=== PATIENT | female | born 1950 | race Caucasian/White ===

== ENCOUNTER 2020-09-22 09:14 | Inpatient (IN) | payer MEDICARE, MEDICAID ==
[~2020-09-22] VITALS: Ht 160 cm; Wt 94.3 kg
[~2020-09-22 09:14] MED LIST: ABIL5; FLUO20CA33; HYDR-3735; IBUP-2030; LORA-250
[2020-09-22 10:05] LABS: BASOPHILS % 0.8 % (0.0-2.0); EOSINOPHILS % 4.7 % (0.0-5.0); HEMATOCRIT. 39.5 % (36.0-48.0); LYMPHOCYTES % 24.2 % (20.0-50.0); MEAN CORPUSCULAR HEMOGLOBIN 31.6 pg (28.0-32.0); MEAN CORPUSCULAR VOLUME 89.2 fL (81.0-99.0); MEAN PLATELET VOLUME 7.4 fl (7.4-10.4); MONOCYTES % 6.1 % (2.0-8.0); NEUTROPHILS % 64.2 % (40.0-76.0); PLATELET 305 x1000/uL (130-400); RED BLOOD CELL COUNT 4.42 mill/uL (4.2-5.4); RED CELL DISTRIBUTION WIDTH 13.6 % (11.6-14.6)
[2020-09-22 10:12] LABS: CHLORIDE 105 mEq/L (98-107)
[2020-09-22] MEDS ORDERED: METHYLPREDNISOLONE SOD SUCC 125 MG/2 ML VIAL IV STA (10:27)
[2020-09-22] MEDS ORDERED: LEVOFLOXACIN 750MG PREMIX 150 ML IV STA (10:27)
[2020-09-22] MEDS ORDERED: IPRATROPIUM BROMIDE (0.02%) 0.5MG/2.5ML NEB HHN STA (10:27)
[2020-09-22] MEDS ORDERED: ALBUTEROL (0.083%) 2.5MG/3ML NEB HHN STA (10:27)
[2020-09-22] MEDS ORDERED: HYDRALAZINE 20MG/ML VIAL IV ONE (10:30)
[2020-09-22] MEDS ORDERED: ASPIRIN 81MG TABLET PO ONE (10:30)
[2020-09-22 13:40] VITALS: BP 112/43
[2020-09-22 14:00] VITALS: BP 112/43
[2020-09-22] MEDS ORDERED: LORAZEPAM 0.5MG TABLET PO PRN (14:30)
[2020-09-22] MEDS ORDERED: DIPHENHYDRAMINE 50MG/ML VIAL IV PRN (14:30)
[2020-09-22] MEDS ORDERED: ACETAMINOPHEN 650MG SUPP PR PRN (14:30)
[2020-09-22] MEDS ORDERED: IPRATROPIUM/ALBUTEROL 0.5-3(2.5)MG/3ML NEB NEB PRN (14:30)
[2020-09-22] MEDS ORDERED: CLONIDINE 0.1MG TABLET PO PRN (14:30)
[2020-09-22] MEDS ORDERED: GUAIFENESIN 200MG/10ML SUGAR FREE UDC PO PRN (14:30)
[2020-09-22] MEDS ORDERED: HYDROCODONE/ACETAMINOPHEN 5/325MG TABLET PO PRN (14:30)
[2020-09-22] MEDS ORDERED: MAGNESIUM/ALUMINUM HYDROXIDE/SIMETHICONE 30ML UDC PO PRN (14:30)
[2020-09-22] MEDS ORDERED: NA PHOS,M-B/NA PHOS,DI-BA ENEMA 118ML PR PRN (14:30)
[2020-09-22] MEDS ORDERED: ACETAMINOPHEN 325MG TABLET PO PRN (14:30)
[2020-09-22] MEDS ORDERED: ONDANSETRON HCL 4MG/2ML INJ IV PRN (14:30)
[2020-09-22] MEDS ORDERED: DOCUSATE SODIUM 100MG CAPSULE PO PRN (14:30)
[2020-09-22] MEDS ORDERED: GABA-532 PO (15:20)
[2020-09-22] MEDS ORDERED: BUSP10TA4 PO (15:20)
[2020-09-22] MEDS ORDERED: CLAR10 MT (15:20)
[2020-09-22 16:00] VITALS: BP 120/43
[2020-09-22 16:12] LABS: BG BASE EXCESS 0.7 mmol/L (-2.0-2.0); BG FRACTION INSPIRED OXYGEN 21; BG HCO3 ACT 25.5 mmol/L (22.0-26.0); BG METHEMOGLOBIN 0.3 % (0.0-1.5); BG OXYHEMOGLOBIN 93.7 % (94.0-97.0); BG PCO2 41.3 mmHg (35.0-45.0); BG PH 7.408 (7.350-7.450); BG SAMPLE SITE RIGHT RADIAL; BG TOTAL HEMOGLOBIN 14.3 g/dL (12.0-18.0); BG VENT MODE ROOM AIR
[2020-09-22] MEDS ORDERED: *PATIENT'S OWN MEDICATION STORAGE XX SCH (16:15)
[2020-09-22 16:41] LABS: D-DIMER 0.44 mg/L FEU (<0.50); INR 1.1; PROTHROMBIN TIME 11.4 sec (9.6-11.0)
[2020-09-22] MEDS: SODIUM CHLORIDE 0.45% 1,000 ML IV SCH (17:25)
[2020-09-22] MEDS: LEVOFLOXACIN 500MG PREMIX 100 ML IV SCH (17:25)
[2020-09-22] MEDS ORDERED: ENOXAPARIN 30MG/0.3ML SYR SUBCUT SCH (18:00)
[2020-09-22 20:00] VITALS: BP 118/51
[2020-09-22] MEDS: IPRATROPIUM/ALBUTEROL 0.5-3(2.5)MG/3ML NEB NEB SCH (20:53)
[2020-09-22] MEDS: GABAPENTIN 300MG CAPSULE PO SCH (20:56)
[2020-09-22] MEDS: FAMOTIDINE 20MG TABLET PO SCH (20:56)
[2020-09-22] MEDS: BUSPIRONE HCL 10MG TABLET PO SCH (22:55)
[2020-09-22] MEDS ORDERED: IOHEXOL-350 100 ML BOTTLE ONE (23:14)
[2020-09-23] VITALS: BP 121/74
[2020-09-23 00:50] LABS: CREATINE KINASE MB FRACTION 8.6 ng/mL (0.5-3.6)
[2020-09-23] MEDS: ASPIRIN 81MG TABLET PO SCH ×2 (01:26→09:52)
[2020-09-23] MEDS: METOPROLOL TARTRATE 25MG TABLET PO SCH ×3 (01:27→21:00)
[2020-09-23] MEDS: IPRATROPIUM/ALBUTEROL 0.5-3(2.5)MG/3ML NEB NEB SCH ×4 (02:16→20:30)
[2020-09-23 04:00] VITALS: BP 115/52
[2020-09-23] MEDS: GABAPENTIN 300MG CAPSULE PO SCH ×3 (05:48→22:00)
[2020-09-23 06:19] LABS: CHLORIDE 102 mEq/L (98-107)
[2020-09-23 06:30] LABS: T4 FREE 1.16 ng/dL (0.76-1.46)
[2020-09-23 06:31] LABS: LDL CHOLESTEROL 94 mg/dL (5-100)
[2020-09-23 06:32] LABS: CREATINE KINASE 197 IU/L (26-192); CREATINE KINASE MB FRACTION 8.1 ng/mL (0.5-3.6); HDL CHOLESTEROL 74 mg/dL (40-59)
[2020-09-23 07:52] VITALS: BP 124/71
[2020-09-23] MEDS ORDERED: ENOXAPARIN 40MG/0.4ML SYR SUBCUT SCH (09:00)
[2020-09-23] MEDS: BUSPIRONE HCL 10MG TABLET PO SCH ×2 (09:52→21:00)
[2020-09-23] MEDS: LORATADINE 10MG TABLET PO SCH (09:52)
[2020-09-23] MEDS: METHYLPREDNISOLONE SOD SUCC 40 MG/ML VIAL IV SCH (09:52)
[2020-09-23] MEDS: ENOXAPARIN 30MG/0.3ML SYR SUBCUT SCH ×2 (09:52→21:00)
[2020-09-23] MEDS: ARIPIPRAZOLE 5MG TABLET PO SCH (09:53)
[2020-09-23 12:00] VITALS: BP 129/57
[2020-09-23 14:17] LABS: BASOPHILS % 0.4 % (0.0-2.0); EOSINOPHILS % 0.1 % (0.0-5.0); HEMATOCRIT. 38.7 % (36.0-48.0); HEMOGLOBIN. 13.2 g/dL (12.0-16.0); MEAN CORPUSCULAR HEMOGLOBIN 30.9 pg (28.0-32.0); MEAN CORPUSCULAR VOLUME 90.2 fL (81.0-99.0); MEAN PLATELET VOLUME 8.2 fl (7.4-10.4); MONOCYTES % 4.4 % (2.0-8.0); NEUTROPHILS % 86.1 % (40.0-76.0); PLATELET 345 x1000/uL (130-400); RED BLOOD CELL COUNT 4.29 mill/uL (4.2-5.4)
[2020-09-23] MEDS: SODIUM CHLORIDE 0.45% 1,000 ML IV SCH (14:18)
[2020-09-23 16:00] VITALS: BP 123/64
[2020-09-23] MEDS: LEVOFLOXACIN 500MG PREMIX 100 ML IV SCH (17:22)
[2020-09-23 20:00] VITALS: BP 132/65
[2020-09-23] MEDS: FAMOTIDINE 20MG TABLET PO SCH (21:00)
[2020-09-23] MEDS: ATORVASTATIN CALCIUM 40MG TABLET PO SCH (21:00)
[2020-09-24] VITALS: BP 109/59
[2020-09-24] MEDS: IPRATROPIUM/ALBUTEROL 0.5-3(2.5)MG/3ML NEB NEB SCH ×4 (00:51→21:27)
[2020-09-24] MEDS: GABAPENTIN 300MG CAPSULE PO SCH ×3 (06:35→22:04)
[2020-09-24 06:43] LABS: BASOPHILS % 0.3 % (0.0-2.0); EOSINOPHILS % 0.1 % (0.0-5.0); HEMATOCRIT. 38.2 % (36.0-48.0); HEMOGLOBIN. 12.7 g/dL (12.0-16.0); MEAN CORPUSCULAR HEMOGLOBIN 30.3 pg (28.0-32.0); MEAN CORPUSCULAR VOLUME 91.3 fL (81.0-99.0); MEAN PLATELET VOLUME 8.1 fl (7.4-10.4); MONOCYTES % 5.2 % (2.0-8.0); NEUTROPHILS % 68.4 % (40.0-76.0); PLATELET 323 x1000/uL (130-400); RED BLOOD CELL COUNT 4.19 mill/uL (4.2-5.4); RED CELL DISTRIBUTION WIDTH 14.2 % (11.6-14.6)
[2020-09-24 07:01] LABS: CHLORIDE 106 mEq/L (98-107)
[2020-09-24 08:00] VITALS: BP 112/61
[2020-09-24] MEDS: SODIUM CHLORIDE 0.45% 1,000 ML IV SCH (08:00)
[2020-09-24] MEDS: ARIPIPRAZOLE 5MG TABLET PO SCH (09:43)
[2020-09-24] MEDS: METOPROLOL TARTRATE 25MG TABLET PO SCH ×2 (09:43→22:04)
[2020-09-24] MEDS: BUSPIRONE HCL 10MG TABLET PO SCH ×2 (09:44→22:04)
[2020-09-24] MEDS: METHYLPREDNISOLONE SOD SUCC 40 MG/ML VIAL IV SCH (09:45)
[2020-09-24] MEDS: LORATADINE 10MG TABLET PO SCH (09:45)
[2020-09-24] MEDS: ENOXAPARIN 30MG/0.3ML SYR SUBCUT SCH ×2 (09:46→22:03)
[2020-09-24] MEDS: ASPIRIN 81MG TABLET PO SCH (09:46)
[2020-09-24] MEDS ORDERED: REGADENOSON 0.4 MG/5 ML IV NR (10:45)
[2020-09-24 12:00] VITALS: BP 129/76
[2020-09-24] MEDS: DEXT 5%/0.45% NACL 1000ML 1,000 ML IV SCH (15:30)
[2020-09-24 16:00] VITALS: BP 115/49
[2020-09-24] MEDS: LEVOFLOXACIN 500MG PREMIX 100 ML IV SCH (18:16)
[2020-09-24 20:00] VITALS: BP 116/58
[2020-09-24] MEDS: ATORVASTATIN CALCIUM 40MG TABLET PO SCH (22:04)
[2020-09-24] MEDS: FAMOTIDINE 20MG TABLET PO SCH (22:04)
[2020-09-25] VITALS: BP 121/62
[2020-09-25] MEDS: IPRATROPIUM/ALBUTEROL 0.5-3(2.5)MG/3ML NEB NEB SCH ×2 (02:40→13:06)
[2020-09-25 04:00] VITALS: BP 122/57
[2020-09-25] MEDS: GABAPENTIN 300MG CAPSULE PO SCH (06:17)
[2020-09-25 07:17] LABS: BASOPHILS % 0.7 % (0.0-2.0); EOSINOPHILS % 3.4 % (0.0-5.0); HEMATOCRIT. 38.1 % (36.0-48.0); HEMOGLOBIN. 12.7 g/dL (12.0-16.0); LYMPHOCYTES % 39.3 % (20.0-50.0); MEAN CORPUSCULAR HEMOGLOBIN 30.5 pg (28.0-32.0); MEAN CORPUSCULAR VOLUME 91.2 fL (81.0-99.0); MEAN PLATELET VOLUME 7.9 fl (7.4-10.4); MONOCYTES % 7.8 % (2.0-8.0); NEUTROPHILS % 48.8 % (40.0-76.0); PLATELET 304 x1000/uL (130-400); RED BLOOD CELL COUNT 4.18 mill/uL (4.2-5.4); RED CELL DISTRIBUTION WIDTH 14.3 % (11.6-14.6)
[2020-09-25 07:50] LABS: CHLORIDE 106 mEq/L (98-107)
[2020-09-25 08:00] VITALS: BP 124/68
[2020-09-25] MEDS: DEXT 5%/0.45% NACL 1000ML 1,000 ML IV SCH (08:10)
[2020-09-25] MEDS ORDERED: REGADENOSON 0.4 MG/5 ML IV ONE (08:46)
[2020-09-25] MEDS: ENOXAPARIN 30MG/0.3ML SYR SUBCUT SCH (09:00)
[2020-09-25] MEDS: LORATADINE 10MG TABLET PO SCH (09:00)
[2020-09-25] MEDS: BUSPIRONE HCL 10MG TABLET PO SCH (09:00)
[2020-09-25] MEDS: METOPROLOL TARTRATE 25MG TABLET PO SCH (09:00)
[2020-09-25] MEDS: ASPIRIN 81MG TABLET PO SCH (09:00)
[2020-09-25] MEDS: METHYLPREDNISOLONE SOD SUCC 40 MG/ML VIAL IV SCH (09:00)
[2020-09-25] MEDS: ARIPIPRAZOLE 5MG TABLET PO SCH (09:00)
[2020-09-25 12:29] VITALS: BP 125/58
[2020-09-25 16:08] VITALS: BP 125/58
[2020-09-26] MEDS ORDERED: IBUP-2028 MT (14:45)
== END 2020-09-25 16:55 | disposition home or self-care (01) | DRG 280 ==
LOC: ER 09:14 → 8WST 11:24 → ENRESERV 13:04 → 8WST 23:36
PROVIDERS: ADMIT Internal Medicine; ATTEND Internal Medicine
DX: I21.4 Non-ST elevation (NSTEMI) myocardial infarction (principal); J96.01 Acute respiratory failure with hypoxia; J45.901 Unspecified asthma with (acute) exacerbation; E66.9 Obesity, unspecified; K21.9 Gastro-esophageal reflux disease without esophagitis; F32.9 Major depressive disorder, single episode, unspecified; F41.9 Anxiety disorder, unspecified; Z87.891 Personal history of nicotine dependence; J06.9 Acute upper respiratory infection, unspecified; I10 Essential (primary) hypertension; R73.9 Hyperglycemia, unspecified; Z68.36 Body mass index [BMI] 36.0-36.9, adult
CPT/HCPCS: 36415; 36600; 71045; 71275; 78452; 80048; 80053; 80061; 82375; 82550; 82553; 82805; 83036; 83735; 83880; 84145; 84439; 84443; 84484; 85025; 85379; 87426; 93005; 93017; 93306; 93970; 94640; 94644; 99285; A9500; C1893; J0360; J1650; J1956; J2785; J2920; J2930; Q9967

== ENCOUNTER 2020-09-26 13:12 | Emergency (ER) | payer MEDICARE, MEDICAID ==
[~2020-09-26] VITALS: Ht 165.1 cm; Wt 93.0 kg
[~2020-09-26 13:12] MED LIST changes: +BUSP10TA4 PO; +CLAR10 MT; +GABA-532 PO
[2020-09-26] MEDS ORDERED: KETOROLAC 30MG/ML VIAL IV STA (13:37)
[2020-09-26] MEDS ORDERED: SODIUM CHLORIDE 0.9% 1,000 ML IV ONE (13:45)
[2020-09-26 14:15] LABS: BASOPHILS % 0.6 % (0.0-2.0); EOSINOPHILS % 0.7 % (0.0-5.0); HEMATOCRIT. 40.6 % (36.0-48.0); HEMOGLOBIN. 14.5 g/dL (12.0-16.0); LYMPHOCYTES % 9.1 % (20.0-50.0); MEAN CORPUSCULAR HEMOGLOBIN 31.6 pg (28.0-32.0); MEAN CORPUSCULAR VOLUME 88.9 fL (81.0-99.0); MEAN PLATELET VOLUME 7.6 fl (7.4-10.4); MONOCYTES % 2.8 % (2.0-8.0); NEUTROPHILS % 86.8 % (40.0-76.0); PLATELET 290 x1000/uL (130-400); RED BLOOD CELL COUNT 4.57 mill/uL (4.2-5.4); RED CELL DISTRIBUTION WIDTH 13.8 % (11.6-14.6)
[2020-09-26 14:18] LABS: CHLORIDE 105 mEq/L (98-107)
[2020-09-26 14:20] VITALS: BP 166/71
[2020-09-26] MEDS ORDERED: IBUP-2028 MT (14:45)
== END 2020-09-26 17:07 | disposition home or self-care (01) ==
LOC: ER 13:12
DX: R51.9 Headache, unspecified (principal); T42.6X5A Adverse effect of other antiepileptic and sedative-hypnotic drugs, initial encounter; I10 Essential (primary) hypertension; K21.9 Gastro-esophageal reflux disease without esophagitis; Z79.899 Other long term (current) drug therapy; Z98.890 Other specified postprocedural states; Y92.9 Unspecified place or not applicable
CPT/HCPCS: 36415; 71045; 80053; 82962; 85025; 93005; 99285; J7030

== ENCOUNTER 2022-02-09 17:40 | Inpatient (IN) | payer MEDICARE, MEDICAID ==
[~2022-02-09] VITALS: Ht 152.4 cm; Wt 86.2 kg
[~2022-02-09 17:40] MED LIST changes: +IBUP-2028 MT
[2022-02-09] MEDS ORDERED: METHYLPREDNISOLONE SOD SUCC 125 MG/2 ML VIAL IV STA (18:11)
[2022-02-09] MEDS ORDERED: IPRATROPIUM BROMIDE (0.02%) 0.5MG/2.5ML NEB HHN NR (18:11)
[2022-02-09] MEDS ORDERED: IPRATROPIUM BROMIDE (0.02%) 0.5MG/2.5ML NEB HHN STA (18:11)
[2022-02-09] MEDS ORDERED: MAGNESIUM 2 G PREMIX 50 ML IV ONE (18:15)
[2022-02-09] MEDS: ALBUTEROL (0.083%) 2.5MG/3ML NEB HHN SCH ×6 (19:04→22:19)
[2022-02-09 19:23] LABS: BASOPHILS % 0.5 % (0.0-2.0); EOSINOPHILS % 5.4 % (0.0-5.0); HEMATOCRIT. 39.4 % (36.0-48.0); HEMOGLOBIN. 13.3 g/dL (12.0-16.0); LYMPHOCYTES % 32.7 % (20.0-50.0); MEAN CORPUSCULAR HEMOGLOBIN 30.9 pg (28.0-32.0); MEAN CORPUSCULAR VOLUME 91.4 fL (81.0-99.0); MEAN PLATELET VOLUME 7.7 fl (7.4-10.4); MONOCYTES % 8.1 % (2.0-8.0); NEUTROPHILS % 53.3 % (40.0-76.0); PLATELET 299 x1000/uL (130-400); RED BLOOD CELL COUNT 4.31 mill/uL (4.2-5.4); RED CELL DISTRIBUTION WIDTH 14.2 % (11.6-14.6)
[2022-02-09 20:19] LABS: CHLORIDE 99 mEq/L (98-107)
[2022-02-10] MEDS ORDERED: CEFTRIAXONE 1 G PREMIX 50 ML IV SCH (01:30)
[2022-02-10] MEDS ORDERED: ZOLPIDEM TARTRATE 5MG TABLET PO PRN (01:30)
[2022-02-10 01:53] VITALS: BP 140/69
[2022-02-10 04:00] VITALS: BP_SYST 137; BP_SYST 145; BP_DIAS 63; BP_DIAS 85
[2022-02-10] MEDS ORDERED: AZITHROMYCIN 500 MG in DEXT 5% WATER 250 ML IV SCH (05:00)
[2022-02-10] MEDS ORDERED: IPRATROPIUM/ALBUTEROL 0.5-3(2.5)MG/3ML NEB HHN SCH (06:00)
[2022-02-10] MEDS ORDERED: CEFTRIAXONE 1,000 MG in DEXTROSE 5% WATER 50 ML IV SCH (06:00)
[2022-02-10] MEDS: METHYLPREDNISOLONE SOD SUCC 40 MG/ML VIAL IV SCH ×2 (06:32→15:11)
[2022-02-10 07:39] LABS: BASOPHILS % 0.1 % (0.0-2.0); HEMATOCRIT. 40.1 % (36.0-48.0); HEMOGLOBIN. 13.6 g/dL (12.0-16.0); LYMPHOCYTES % 10.1 % (20.0-50.0); MEAN CORPUSCULAR HEMOGLOBIN 30.8 pg (28.0-32.0); MEAN CORPUSCULAR VOLUME 90.9 fL (81.0-99.0); MEAN PLATELET VOLUME 7.9 fl (7.4-10.4); MONOCYTES % 1.3 % (2.0-8.0); NEUTROPHILS % 88.5 % (40.0-76.0); PLATELET 302 x1000/uL (130-400); RED BLOOD CELL COUNT 4.41 mill/uL (4.2-5.4); RED CELL DISTRIBUTION WIDTH 14.1 % (11.6-14.6)
[2022-02-10 08:00] VITALS: BP 132/70
[2022-02-10 08:02] LABS: CHLORIDE 98 mEq/L (98-107)
[2022-02-10] MEDS ORDERED: INFLUENZA VACCINE 05/PF 0.5 ML SYRINGE IM ONE (09:00)
[2022-02-10] MEDS ORDERED: ENOXAPARIN 30MG/0.3ML SYR SUBCUT SCH (09:00)
[2022-02-10] MEDS ORDERED: PNEUMOCOCCAL 23-VAL P-SAC VAC 0.5 ML IM ONE (09:00)
[2022-02-10] MEDS ORDERED: LORATADINE 10MG TABLET PO SCH (09:00)
[2022-02-10 12:00] VITALS: BP 158/69
[2022-02-10 16:00] VITALS: BP 137/63
[2022-02-10] MEDS ORDERED: AZIT250T12 MT (17:16)
[2022-02-10] MEDS ORDERED: MED4 MT (17:16)
[2022-02-10] MEDS ORDERED: FLUT1BLS INH (17:17)
[2022-02-10 17:43] VITALS: BP 137/63
== END 2022-02-10 18:30 | disposition home or self-care (01) | DRG 203 ==
LOC: ER 17:40 → EDBEDREQ 21:31 → 7EST 21:35
PROVIDERS: ADMIT Internal Medicine; ATTEND Internal Medicine
DX: J45.21 Mild intermittent asthma with (acute) exacerbation (principal); I10 Essential (primary) hypertension; F32.A Depression, unspecified; D72.829 Elevated white blood cell count, unspecified; Z20.822 Contact with and (suspected) exposure to COVID-19
CPT/HCPCS: 36415; 71045; 71250; 80048; 80053; 83880; 85025; 87426; 93005; 94640; 99285; C9803; J0456; J0696; J1650; J2920; J2930; J3475; J7060